=== PATIENT | female | born 1970 | race Caucasian/White ===

== ENCOUNTER → 2020-03-11 | Outpatient (CLI) | payer OTHER ==
[~2020-03-11] MED LIST: ACYCLOVIR 400400 MG PO; BRINTELLIX10 MG PO; EMGALITY120 MG/1 M SUBQ; FAMOTIDINE40 MG PO; KEPPRA750 MG PO; LAMICTAL100 MG PO; PROTONIX40 M2 PO; TOPAMAX 100 MG100 MG PO; TRELEGY ELLIPT1 EACH INH; VITAMIN D325 MC3 PO; ZYRTEC10 M2 PO
== END ==
LOC: M.LAB 09:54
PROVIDERS: ATTEND Surgery
DX: Z01.812 Encounter for preprocedural laboratory examination (principal); Z20.828 Contact with and (suspected) exposure to other viral communicable diseases

== ENCOUNTER → 2020-03-16 | Day surgery (SDC) | payer OTHER ==
[~2020-03-16] MED LIST changes: +OXYCODONE HCL 55 MG PO; +PERCOCET 5-3251 EACH PO
--- NOTE | ~2020-03-16 | OP ---
[address] [address] OPERATIVE REPORT Name: RAVI CAMPOS Room: [facility]#: [id number] Admission: 03/16/20 Attend Phys: Stephania West Discharge: Date of : 74 Report #: [id number] THIS REPORT FOR: //name// cc: Emilio Paige MD, William MD ~ CC: Nikunj Paige MD DICTATED BY: Austin Nolasco DO DATE OF SERVICE: 03/16/2020 PREOPERATIVE DIAGNOSIS: Biliary dyskinesia. POSTOPERATIVE DIAGNOSIS: Chronic cholecystitis. SURGEON: Nikunj Allison DO ASSISTANTS: Austin Nolasco, PGY5 and Manish Buck MS4. OPERATION PERFORMED: Laparoscopic cholecystectomy. ANESTHESIA: General and TAP block by Anesthesia. ESTIMATED BLOOD LOSS: 2 mL. SPECIMEN: Gallbladder. COMPLICATIONS: None. INDICATIONS: The patient is a 49-year-old female that presented to the clinic with complaints of abdominal pain. She had undergone an extensive workup. Her symptoms were consistent with dyskinesia, so she was informed of the risks and benefits of laparoscopic cholecystectomy with risks including but not limited to bleeding, infection, bile duct injury, bowel injury, hernia formation, need for open procedure, need for reoperation and chronic diarrhea. She voiced understanding of these risks and decided to proceed with surgery. DESCRIPTION OF PROCEDURE: After informed consent was obtained, the patient was brought to the operating room and placed in supine position. SCDs were on and running. Preoperative antibiotics were given. General anesthesia was administered with an ET tube. Bilateral transversus abdominis plane blocks were placed by anesthesia. The patient was prepped and draped in the usual sterile fashion. A surgical pause was held to confirm proper patient and procedure. An infraumbilical horizontal incision was made with 11 [place] [address] OPERATIVE REPORT Name: RAVI CAMPOS Room: [facility]#: [id number] Admission: 03/16/20 Attend Phys: Stephania West Discharge: Date of : 74 Report #: [id number] carried through the subcutaneous tissue using a Cori and S retractors until the fascia was identified. Fascia was elevated with 2 Kochers and incised using cautery. Peritoneum was elevated with 2 Kellys and incised using Metzenbaum scissors. A final layer peritoneum was entered using a Cori, 0 Vic[address] was used to place stay sutures on either side of the fascia. A Celia trocar was introduced into the abdomen. Abdomen was insufflated. Camera was introduced. The gallbladder was readily visible in the right upper quadrant. The patient was positioned head up and right side up. A 5 mm port in the epigastrium was placed under direct visualization. Two additional ports in the right upper quadrant were placed under direct visualization. The patient was positioned head up and right side up. The gallbladder was elevated. There were some light omental adhesions and adhesions to the duodenum, which were taken down using cautery. Care to stay high on the gallbladder and away from surrounding structures. Once these adhesions were down the peritoneum overlying Laith's pouch and the hepatocystic triangle was taken down laterally and medially using cautery. Blunt dissection was then used to develop the structures of the hepatocystic triangle. The critical view of safety was obtained with only two structures entering the gallbladder, the cystic duct and the cystic artery. Once this was photographically confirmed, a Weck Hem-o-holland clips were used to clip and cut both the duct and artery. Duct was doubly clipped, the artery was singly clipped. Once these were divided, The gallbladder was elevated and dissected free from the liver bed. There was a small posterior branch of the cystic artery, which was singly clipped and divided using cautery. The gallbladder was removed from the liver bed, placed within an EndoCatch bag and placed aside. The liver bed was inspected. Cautery was used for hemostasis. The clips were inspected and hemostatic. There was no bile leak. Right upper quadrant was thoroughly irrigated and suctioned. The patient was positioned supine. The right upper quadrant was again suctioned. The ports were removed under direct visualization. Abdomen was desufflated. Previous stay sutures were elevated. The specimen was removed through the umbilical incision. A single amnynd-fq-hyecg using 0 Vicryl was used to close the fascia. The umbilical incision was closed in layered fashion using 3-0 Vicryl, 4-0 Monocryl. Remainder of skin was closed using 4-0 Monocryl. Wounds were cleansed and dressed with Dermabond. All counts were correct. The patient was emerged from anesthesia and transferred to the PACU in stable condition. There were no complications. By: [id number] Allison DO /faraz
--- NOTE | 2020-03-21 16:06 | PATH ---
[address] [address] PATHOLOGY RPT PROCEDURE Name: JESSICA CAMPOS Room: [facility]#: [id number] Admission: 03/16/20 Date of : 74 Discharge: Report #: [id number] Path Case #: [id number] [facility] Accession Number: [id number] . 01 Material submitted: . gallbladder - GALLBLADDER AND CONTENTS . 01 Clinical history: . DYSKINESIA OF GALLBLADDER . 02 Diagnosis: Gallbladder and contents: - Chronic cholecystitis. (SEE:pit 03/21/2020) QTP 03/21/2020 1308 Local . 02 Electronically signed: . Diego Gayle MD, Pathologist NPI- [id number] . 01 Gross description: . Received in formalin labeled "Jessica Campos, gallbladder and contents" is an intact cholecystectomy specimen measuring 7.7 x 4.4 x 3.7 cm. The serosa is dozier-green and smooth and the specimen is opened to reveal dark green velvety mucosa without polyps or masses. The average wall thickness is 0.1 cm. Calculi are not present within the gallbladder or container. Booth Supervisor sections of the fundus and body and the cystic duct margin are submitted in A1. ([facility] [place]; 03/18/2020) [facility] 03/18/2020 1304 Local . 02 Pathologist provided ICD-10: K81.1 . 02 CPT . 177606 Specimen Comment: A courtesy copy of this report has been sent to [phone], [phone] Specimen Comment: [phone] Specimen Comment: Report sent to / DR PEREZ Performed at: [address], [place] [id number] MD Lawrence Díaz MD Phone: [phone] Performed at: 02 [facility] [address], [place], [place] [id number] MD Diego Gayle MD Phone: [phone]
--- NOTE | 2020-03-23 16:42 | OP ---
[facility] [address] [place] [address] OPERATIVE REPORT Name: RAVI CAMPOS Room: [facility]#: [id number] Admission: 03/16/20 Attend Phys: Stephania West Discharge: Date of : 74 Report #: [id number] THIS REPORT FOR: //name// cc: Emilio Paige MD, William MD ~ CC: Nikunj Paige DATE OF SERVICE: 03/21/2020 SURGEON: Nikunj Allison DO AUTOMOTIVE SOFTWARE ENGINEER: Dr. Cecilio Nolasco. PREOPERATIVE DIAGNOSIS: Biliary dyskinesia. POSTOPERATIVE DIAGNOSIS: Biliary dyskinesia. PROCEDURE: Laparoscopic cholecystectomy. INDICATIONS: The patient presented as an outpatient with a history of present illness, physical exam and radiographic findings consistent with biliary dyskinesia. Risks, benefits and alternatives were described in detail for surgery. Risks of bleeding, infection, and damage to nearby structures including the bowel and biliary tree were discussed. The patient voiced understanding and elected to proceed with surgery. DESCRIPTION OF PROCEDURE: The patient was taken to the operating theater. Bilateral SCDs were placed and preoperative antibiotics were given. General anesthesia was induced without complication. The patient's abdomen was prepped and draped in standard sterile fashion. A timeout was performed and an 11 blade scalpel was used to make an infraumbilical transverse incision. Dissection was carried down to the midline fascia using S retractors. Once the midline fascia was appreciated, it was scored with electrocautery and elevated into the surgical field using Cortez clamps. The abdomen was then entered bluntly using a hemostat. 0 Vicryl stay sutures were placed on either edge of the fascia and the Celia trocar was introduced and abdomen was insufflated to 15 mmHg. An additional 5 mm trocar was placed in the subxiphoid position under direct visualization. Next, two 5 mm trocars were placed in the right upper quadrant under direct visualization. There were several small omental adhesions that were carefully taken down from the gallbladder using blunt dissection. Next, the fundus of the gallbladder was grasped and taken cephalad. Laith's pouch was grasped and taken medially and cephalad. The lateral peritoneum was incised using electrocautery. The peritoneal incision was carried [place] [address] OPERATIVE REPORT Name: RAVI CAMPOS Room: [facility]#: [id number] Admission: 03/16/20 Attend Phys: Stephania West Discharge: Date of : 74 Report #: [id number] At this point, blunt dissection was used to push the peritoneum and fibrofatty tissue on the medial and lateral side down. The cystic duct and cystic artery could be clearly seen. These were dissected out using [place] dissector. Once all the fibrofatty tissue was cleared of the hepatocystic triangle, we had obtained our critical view of safety. Two structures and only two structures were entering the gallbladder, the cystic duct and cystic artery. The cystic duct was then clipped twice proximally and once distally. The cystic artery was then clipped once proximally and once distally. The cystic artery and cystic duct were transected using EndoShears. The Laith's pouch was then grasped and elevated towards the anterior abdominal wall. The gallbladder was dissected free from the gallbladder fossa using electrocautery. Once the gallbladder was removed from the liver, it was placed in an EndoCatch bag and placed to the side. Hemostasis of the gallbladder fossa was obtained using electrocautery and the clips were visualized and were intact. There was no bile or blood. The right upper quadrant was thoroughly irrigated and suctioned and the effluent was clear. Next, the patient was returned to the neutral position. The 5 mm trocars were removed under direct visualization. Next, a Celia trocar was removed, the abdomen was desufflated and the gallbladder in the EndoCatch bag was removed through the umbilical incision. The midline fascial incision was closed using 0 Vicryl in a mrhnui-pd-iozuj fashion. The midline incision subcutaneous tissue was closed using 3-0 Vicryl in an interrupted inverted fashion. All skin incisions were closed using 4-0 Monocryl in an interrupted inverted fashion. All skin wounds were dressed with Dermabond. This concluded the procedure. All sponge, needle and instrument counts were correct x 2. COMPLICATIONS: None. FINDINGS: Omental adhesions to the gallbladder. DRAINS: None. SPECIMEN: gallbladder ANESTHESIA: General endotracheal anesthesia. ESTIMATED BLOOD LOSS: 5 mL. DISPOSITION: The patient was extubated in the operating theater successfully and taken to the PACU in stable condition. <ELECTRONICALLY SIGNED> By: Nikunj Allison DO 03/23/20 1642 [id number] Allison DO /nt
== END | disposition home or self-care (01) ==
LOC: M.SUR 05:35
PROVIDERS: ATTEND Surgery
DX: K81.1 Chronic cholecystitis (principal); R10.11 Right upper quadrant pain; R10.13 Epigastric pain; K82.8 Other specified diseases of gallbladder; J44.9 Chronic obstructive pulmonary disease, unspecified; G43.909 Migraine, unspecified, not intractable, without status migrainosus; K21.9 Gastro-esophageal reflux disease without esophagitis; Z98.890 Other specified postprocedural states; Z79.899 Other long term (current) drug therapy; Z88.8 Allergy status to other drugs, medicaments and biological substances